=== PATIENT | female | born 1990 | race Asian ===

== ENCOUNTER 2018-11-07 19:01 | Emergency (ER) | payer SELFPAY ==
[~2018-11-07] VITALS: Ht 162.6 cm; Wt 63.6 kg
[2018-11-07 19:04] VITALS: BP 115/68; TEMP 98.4
[2018-11-07 20:38] VITALS: PULSE 85
== END 2018-11-07 20:38 | disposition home or self-care (01) ==
LOC: COL.ER 19:01
DX: S05.02XA Injury of conjunctiva and corneal abrasion without foreign body, left eye, initial encounter (principal); X58.XXXA Exposure to other specified factors, initial encounter